=== PATIENT | male | born 1960 | race Two or more races ===

== ENCOUNTER 2020-03-15 09:21 | Outpatient (CLI) | payer OTHER | END 2020-03-15 09:50 | disposition home or self-care (01) | LOC: MRI 09:21 | PROVIDERS: ATTEND Neurological Surgery | DX: M41.85 Other forms of scoliosis, thoracolumbar region (principal); M48.02 Spinal stenosis, cervical region; M50.023 Cervical disc disorder at C6-C7 level with myelopathy; M43.22 Fusion of spine, cervical region; M48.10 Ankylosing hyperostosis [Forestier], site unspecified; M43.8X9 Other specified deforming dorsopathies, site unspecified; M47.26 Other spondylosis with radiculopathy, lumbar region; M54.40 Lumbago with sciatica, unspecified side | CPT/HCPCS: 72148 ==